=== PATIENT | male | born 1945 | race Caucasian/White ===

== ENCOUNTER 2019-07-01 10:57 | Outpatient (REF) | payer BC, MEDICARE, SELFPAY ==
[2019-07-01 11:42] LABS: Calculated LDL 100 mg/dL; Cholesterol 164 mg/dL (50-200); HDL Cholesterol 46 mg/dL (40-60); Triglyceride 93 mg/dL (30-150)
== END 2019-07-01 11:17 ==
LOC: LBO 10:57
PROVIDERS: PCP Internal Medicine; Visit Provider Internal Medicine
DX: E78.00 Pure hypercholesterolemia, unspecified (principal)
CPT/HCPCS: 80061

== ENCOUNTER 2020-06-29 19:42 | Outpatient (REF) | payer BC, MEDICARE, SELFPAY ==
[2020-06-29 20:26] LABS: Calculated LDL 78 mg/dL (<100); Cholesterol 137 mg/dL (<200); HDL Cholesterol 45 mg/dL (40-60); Triglyceride 73 mg/dL (<150)
== END 2020-06-29 20:02 ==
LOC: LBN 19:42
PROVIDERS: PCP Internal Medicine; Visit Provider Internal Medicine
DX: E78.00 Pure hypercholesterolemia, unspecified (principal)
CPT/HCPCS: 80061